=== PATIENT | female | born 1965 | race Caucasian/White ===

== ENCOUNTER → 2020-04-05 | Outpatient (REF) | payer OTHER ==
[~2020-04-05] MED LIST: ADDE12.5 PO; KLON0.5T PO; LEVO100T5 PO
[2020-04-05 16:45] LABS: THYROID STIMULATING HORMONE 3.98 uIU/ML (0.358-3.740)
[2020-04-05 17:35] LABS: FREE T4 1.11 NG/DL (0.76-1.46)
== END ==
LOC: M SFHCCLAY 11:53
PROVIDERS: ATTEND Family Medicine
DX: E03.9 Hypothyroidism, unspecified (principal)